=== PATIENT | male | born 1950 | race Caucasian/White ===

== ENCOUNTER → 2020-10-09 | Outpatient (CLI) | payer OTHER ==
[~2020-10-09] MED LIST: ASPIR-TRIN325 MG PO; CLINORIL 200MG200 MG PO; COMBIGAN EYE DRO5 ML EYERT; LEVOTHYROXINE50 MCG PO; NITROSTAT0.4 MG SL; PRINIVIL10 MG PO; RANITIDINE HCL150 MG PO; SAW PALMETTO160 MG PO; TYLENOL W/CODEIN1 E1 PO; VITAMIN D35000 UNI1 PO; XALATAN OP SOL2.5 ML OU
== END ==
LOC: KOH-I 08:00
DX: Z87.891 Personal history of nicotine dependence (principal); Z00.00 Encounter for general adult medical examination without abnormal findings
CPT/HCPCS: 71271

== ENCOUNTER → 2021-02-11 | Outpatient (CLI) | payer OTHER | LOC: RT 10:13 | DX: I25.10 Atherosclerotic heart disease of native coronary artery without angina pectoris (principal); R94.31 Abnormal electrocardiogram [ECG] [EKG] | CPT/HCPCS: 93005 ==

== ENCOUNTER → 2021-02-26 | Outpatient (CLI) | payer OTHER | LOC: HEART 5 02-06 13:30 | DX: I08.3 Combined rheumatic disorders of mitral, aortic and tricuspid valves (principal); Z95.2 Presence of prosthetic heart valve | CPT/HCPCS: 93306 ==

== ENCOUNTER → 2021-05-22 | Outpatient (CLI) | payer OTHER | LOC: RT 09:40 | DX: I25.10 Atherosclerotic heart disease of native coronary artery without angina pectoris (principal); R94.31 Abnormal electrocardiogram [ECG] [EKG] | CPT/HCPCS: 93005 ==

== ENCOUNTER → 2021-11-22 | Outpatient (CLI) | payer OTHER | LOC: EXRD 08:08 | DX: M25.561 Pain in right knee (principal); M25.562 Pain in left knee; M17.0 Bilateral primary osteoarthritis of knee | CPT/HCPCS: 73564 ==

== ENCOUNTER → 2022-04-01 | Outpatient (CLI) | payer OTHER ==
[~2022-04-01] MED LIST changes: +ALFUZOSIN HCL E10 MG PO; +CO Q10100 MG PO; +LOW DOSE ASPIRI81 MG PO; +METOPROLOL TART25 MG PO; +MONTELUKAST SOD10 MG PO; +PEPCID40 MG PO; +TRAMADOL HCL50 MG PO; +VITAMIN D325 MCG PO; -VITAMIN D35000 UNI1 PO
[2022-04-01 09:37] LABS: HEMOGLOBIN 16.1 gm/dl (14.0-17.5); RED BLOOD COUNT 5.01 M/UL (4.20-5.50); WHITE BLOOD COUNT 12.7 K/UL (4.5-11.0)
[2022-04-01 09:58] LABS: BUN/CREATININE RATIO 27 (0-10)
== END ==
LOC: EDSTATUS 08:00 → OPSV2 08:00
PROVIDERS: Orthopaedic Surgery
DX: Z01.818 Encounter for other preprocedural examination (principal); M17.12 Unilateral primary osteoarthritis, left knee
CPT/HCPCS: 36415; 71046; 80048; 85025

== ENCOUNTER → 2022-04-14 | Outpatient (CLI) | payer OTHER ==
[~2022-04-14] MED LIST changes: +CYCLOBENZAPRINE10 MG PO; +ELIQUIS 2.5 MG2.5 MG PO; +OXYCODON-ACETA1 EAC1 PO; +ZOFRAN ODT 4 MG4 MG PO
[2022-04-14 12:23] LABS: BUN/CREATININE RATIO 19 (0-10)
== END ==
LOC: LAB 10:50
PROVIDERS: Orthopaedic Surgery
DX: Z01.812 Encounter for preprocedural laboratory examination (principal); M17.12 Unilateral primary osteoarthritis, left knee
CPT/HCPCS: 36415; 80048; 86850; 86900; 86901

== ENCOUNTER 2022-04-15 05:30 | Day surgery (SDC) | payer OTHER ==
[~2022-04-15] VITALS: Ht 175.3 cm; Wt 115.7 kg
[~2022-04-15 05:30] MED LIST changes: -CYCLOBENZAPRINE10 MG PO; -ELIQUIS 2.5 MG2.5 MG PO; -OXYCODON-ACETA1 EAC1 PO; -ZOFRAN ODT 4 MG4 MG PO
[2022-04-15] MEDS ORDERED: ELIQUIS 2.5 MG2.5 MG PO (06:21)
[2022-04-15] MEDS ORDERED: ZOFRAN ODT 4 MG4 MG PO (06:21)
[2022-04-15] MEDS ORDERED: OXYCODON-ACETA1 EAC1 PO (06:22)
[2022-04-15] MEDS ORDERED: CYCLOBENZAPRINE10 MG PO (06:22)
[2022-04-16 05:20] LABS: HEMOGLOBIN 12.2 gm/dl (14.0-17.5); RED BLOOD COUNT 3.84 M/UL (4.20-5.50); WHITE BLOOD COUNT 17.8 K/UL (4.5-11.0)
[2022-04-16 06:03] LABS: BUN/CREATININE RATIO 26 (0-10)
== END 2022-04-16 16:08 | disposition home or self-care (01) ==
LOC: OR 05:30 → EDSTATUS 07:30 → CCU 12:21 → OR 12:21 → CCU 12:21 → OR 04-16 16:08 → CCU 04-16 16:08
PROVIDERS: Orthopaedic Surgery
DX: M17.0 Bilateral primary osteoarthritis of knee (principal); I25.10 Atherosclerotic heart disease of native coronary artery without angina pectoris; Z95.5 Presence of coronary angioplasty implant and graft; Z79.01 Long term (current) use of anticoagulants; Z79.82 Long term (current) use of aspirin; Z79.899 Other long term (current) drug therapy
CPT/HCPCS: 36415; 73560; 80048; 85027; 97116; 97161; 97165; 97530; 97535; C1713; C1776; J0171; J0690; J1100; J1170; J1644; J2001; J2274; J2405; J2704; J2795; J3010; J3370